=== PATIENT | male | born 1960 | race Hispanic/Latino ===

== ENCOUNTER 2021-07-25 11:09 | Outpatient (CLI) | payer MEDICARE ==
[2021-07-25 13:07] LABS: Hemoglobin 12.4 g/dL (13.5-17.5); Mean Corpuscular HGB CONC 31.2 g/dL (32.0-36.0); Mean Corpuscular Hemoglobin 26.2 pg (27.0-33.0); Mean Platelet Volume 11.2 fl (7.4-10.4); Platelet Count 347 10x3/uL (150-450); RBC Distribution Width 13.6 % (11.5-14.5); Red Blood Cell (RBC) Count 4.74 10x6/uL (4.32-5.72); White Blood Cell (WBC) Count 10.9 10x3/uL (3.5-10.5)
[2021-07-25 13:15] LABS: Anion Gap 17 mmol/L (10-20); BUN (Urea Nitrogen) 14 mg/dL (8.4-25.7); Calc. Creatinine Clearance 0 mL/min (70-130); Calcium 9.4 mg/dL (7.8-10.44); Carbon Dioxide 23 mmol/L (23-31); Chloride 99 mmol/L (98-107); Glucose 304 mg/dL (80-115); Potassium 4.8 mmol/L (3.5-5.1); Sodium 134 mmol/L (136-145)
[2021-07-26 12:54] LABS: SARS-CoV-2 PCR by NAA Not Detected (NotDetected)
== END 2021-07-25 11:10 | disposition home or self-care (01) ==
LOC: LABBT 11:09
PROVIDERS: ATTEND Neurological Surgery
DX: Z01.818 Encounter for other preprocedural examination (principal); K42.9 Umbilical hernia without obstruction or gangrene; Z20.822 Contact with and (suspected) exposure to COVID-19
CPT/HCPCS: 80048; 85027; 93005; U0003; U0005; 93010

== ENCOUNTER 2021-07-28 06:53 | Inpatient (IN) | payer MEDICARE ==
[2021-07-28] MEDS ORDERED: ceFAZolin 2 GM/DEX 5% 100 ML BAG ONE ×2 (09:33→16:54)
[2021-07-28] MEDS ORDERED: Fentanyl 100 MCG/2 ML VIAL ONE ×4 (09:44→15:27)
[2021-07-28] MEDS ORDERED: HYDROmorphone 0.5 MG/0.5 ML SYRINGE ONE (09:44)
[2021-07-28] MEDS ORDERED: PROPOFOL 200 MG/20 ML VIAL ONE (09:51)
[2021-07-28] MEDS ORDERED: Ketorolac Tromethamine 30 MG/ML VIAL ONE (09:51)
[2021-07-28] MEDS ORDERED: Rocuronium Bromide 10 MG/ML (10ML VIAL) ONE (09:51)
[2021-07-28] MEDS ORDERED: Dexamethasone 20 MG/5 ML VIAL ONE (09:51)
[2021-07-28] MEDS ORDERED: Glycopyrrolate 0.2 MG/ML 5 ML SYRINGE ONE ×2 (09:51)
[2021-07-28] MEDS ORDERED: Ondansetron PF 4 MG/2 ML Vial ONE (09:51)
[2021-07-28] MEDS ORDERED: Lidocaine 1% PF 5 ML VIAL ONE (09:51)
[2021-07-28] MEDS ORDERED: PHENYLEPHRINE-NS 100 MCG/ML 10 ML SYRINGE ONE (09:51)
[2021-07-28] MEDS ORDERED: SUGAMMADEX SODIUM 200 MG/2 ML VIAL ONE (10:37)
[2021-07-28] MEDS: Gabapentin 300 MG CAP PO SCH ×2 (16:45→22:15)
[2021-07-28] MEDS ORDERED: cefOXitin Sodium/Dextrose 2 GM/50 ML BAG ONE (16:50)
[2021-07-28] MEDS ORDERED: Gabapentin 300 MG CAP ONE (16:51)
[2021-07-28] MEDS: ceFAZolin 2 GM/Dextrose 50 ML 2 GM in Premix Bag 1 BAG IVPB SCH (17:13)
[2021-07-28] MEDS ORDERED: traMADol HCl 50 MG TAB PO PRN ×2 (17:15)
[2021-07-28] MEDS ORDERED: Morphine 4 MG/ML VIAL SLOW IVP PRN (17:15)
[2021-07-28] MEDS ORDERED: Acetaminophen/Codeine 30-300mg Tablet PO PRN (17:15)
[2021-07-28] MEDS ORDERED: diphenhydrAMINE 50 MG/ML VIAL IVP PRN (17:15)
[2021-07-28] MEDS ORDERED: diphenhydrAMINE 25 MG CAP PO PRN (17:15)
[2021-07-28] MEDS ORDERED: Mag-Al 1200 mg/1200 mg/30 ML UDCUP PO PRN (17:15)
[2021-07-28] MEDS ORDERED: Milk Of Magnesia 30 ML UDCUP PO PRN (17:15)
[2021-07-28] MEDS ORDERED: Bisacodyl 10 MG SUPP PR PRN (17:15)
[2021-07-28] MEDS ORDERED: Morphine 2 MG/ML VIAL SLOW IVP PRN (17:15)
[2021-07-28] MEDS ORDERED: Ondansetron PF 4 MG/2 ML Vial IM PRN (17:18)
[2021-07-28] MEDS ORDERED: ceFAZolin 2 GM/Dextrose 50 ML 2 GM in Premix Bag 1 BAG IVPB SCH (18:00)
[2021-07-28] MEDS: Sodium Chloride 0.9% 1,000 ML IV SCH ×2 (18:32→22:03)
[2021-07-28] MEDS: metFORMIN 500 MG TAB PO SCH (18:50)
[2021-07-28] MEDS ORDERED: Tamsulosin HCl 0.4 MG CAP PO SCH (20:30)
[2021-07-28] MEDS ORDERED: Tamsulosin HCl 0.4 MG CAP ONE (20:34)
[2021-07-28 21:48] VITALS: BMI 36.6
[2021-07-28] MEDS: Acetaminophen/Codeine 30-300mg Tablet PO PRN (23:57)
[2021-07-29] MEDS: Cyclobenzaprine 10 MG TAB PO PRN ×2 (00:02→09:17)
[2021-07-29] MEDS: ceFAZolin 2 GM/Dextrose 50 ML 2 GM in Premix Bag 1 BAG IVPB SCH ×3 (02:36→18:33)
[2021-07-29] MEDS: Tamsulosin HCl 0.4 MG CAP PO SCH (06:22)
[2021-07-29] MEDS ORDERED: Dextrose 50% Abboject 50 ML SYRINGE IVP PRN (06:45)
[2021-07-29] MEDS ORDERED: Dextrose 5% in Water 1,000 ML IV PRN ×2 (06:45→12:37)
[2021-07-29] MEDS: Amlodipine 10 MG TAB PO SCH (08:57)
[2021-07-29] MEDS: Gabapentin 300 MG CAP PO SCH ×3 (08:57→21:27)
[2021-07-29] MEDS: metFORMIN 500 MG TAB PO SCH ×2 (08:57→16:03)
[2021-07-29] MEDS: Lisinopril/Hydrochlorothiazide 20 mg/12.5 mg Tablet PO SCH (08:58)
[2021-07-29] MEDS: HumaLOG 300 UNITS/3 ML VIAL SC PRN ×2 (08:58→12:20)
[2021-07-29] MEDS ORDERED: FLU VACC QS2021-22(6MOS UP)/PF 60 MCG/0.5 ML SYRINGE IM ONE (09:00)
[2021-07-29] MEDS ORDERED: Dextrose 50% Abboject 50 ML SYRINGE SLOW IVP PRN (12:37)
[2021-07-29] MEDS ORDERED: HumaLOG 300 UNITS/3 ML VIAL SC PRN (12:37)
[2021-07-29] MEDS ORDERED: Bisacodyl 10 MG SUPP PR PRN (15:34)
[2021-07-29] MEDS: Simethicone Chewable 80 MG TAB PO PRN ×2 (16:03→22:39)
[2021-07-29] MEDS: Acetaminophen/Codeine 30-300mg Tablet PO PRN (18:36)
[2021-07-29] MEDS ORDERED: Lantus 1000 UNITS/10 ML VIAL SC SCH (21:00)
[2021-07-29 21:19] VITALS: BP 101/57; TEMP 98.2
[2021-07-29] MEDS: Senokot S 8.6-50 MG TAB PO SCH (21:27)
[2021-07-30] MEDS: Sodium Chloride 0.9% 1,000 ML IV SCH (00:25)
[2021-07-30] MEDS: ceFAZolin 2 GM/Dextrose 50 ML 2 GM in Premix Bag 1 BAG IVPB SCH (01:57)
[2021-07-30] MEDS: Tamsulosin HCl 0.4 MG CAP PO SCH (05:55)
[2021-07-30 08:24] LABS: #Eosinphils 0.1 thou/uL (0.0-0.7); #Lymphocytes 2.4 thou/uL (1.20-3.40); #Monocytes 0.8 thou/uL (0.11-0.59); #Neutrophils 7.1 thou/uL (1.40-6.50); %Basophils 0.3 % (0.0-1.0); %Eosinophils 1.2 % (0.0-10.0); %Lymphocytes 22.9 % (21.0-51.0); %Monocytes 7.6 % (0.0-10.0); %Neutrophils 68.1 % (42.0-75.0); Hemoglobin 11.2 g/dL (14.0-18.0); Mean Corpuscular HGB CONC 31.9 g/dL (32.0-36.0); Mean Corpuscular Hemoglobin 26.9 pg (27.0-31.0); Mean Corpuscular Volume 84.3 fL (78.0-98.0); Mean Platelet Volume 8.1 fL (7.4-10.4); Platelet Count 233 thou/uL (130-400); RBC Distribution Width 13.5 % (11.5-14.5); Red Blood Cell (RBC) Count 4.15 mill/uL (4.70-6.10); White Blood Cell (WBC) Count 10.4 thou/uL (4.8-10.8)
[2021-07-30 08:40] LABS: Anion Gap 13 mmol/L (10-20); BUN (Urea Nitrogen) 19 mg/dL (8.4-25.7); Calc. Creatinine Clearance 154 mL/min (70-130); Calcium 9.3 mg/dL (7.8-10.44); Carbon Dioxide 28 mmol/L (23-31); Chloride 99 mmol/L (98-107); Glucose 169 mg/dL (80-115); Potassium 4.2 mmol/L (3.5-5.1); Sodium 136 mmol/L (136-145)
[2021-07-30] MEDS: metFORMIN 500 MG TAB PO SCH (09:16)
[2021-07-30] MEDS: Lisinopril/Hydrochlorothiazide 20 mg/12.5 mg Tablet PO SCH (09:16)
[2021-07-30] MEDS: Senokot S 8.6-50 MG TAB PO SCH (09:16)
[2021-07-30] MEDS: Gabapentin 300 MG CAP PO SCH (09:17)
[2021-07-30] MEDS: Amlodipine 10 MG TAB PO SCH (09:17)
== END 2021-07-30 11:32 | disposition home or self-care (01) | DRG 460 ==
LOC: SDC 06:53 → PACU-TCU 12:07 → MSONC 21:39 → OBSVTOIN 07-29 16:29
PROVIDERS: ADMIT Neurological Surgery; ATTEND Neurological Surgery
PROC: 0SG0071 Fusion of Lumbar Vertebral Joint with Autologous Tissue Substitute, Posterior Approach, Posterior Column, Open Approach (ICD-10-PCS; principal; 2021-07-28)
PROC: 00NY0ZZ Release Lumbar Spinal Cord, Open Approach (ICD-10-PCS; 2021-07-28)
DX: M48.062 Spinal stenosis, lumbar region with neurogenic claudication (principal); M43.16 Spondylolisthesis, lumbar region; E66.01 Morbid (severe) obesity due to excess calories; I10 Essential (primary) hypertension; E78.5 Hyperlipidemia, unspecified; N40.0 Benign prostatic hyperplasia without lower urinary tract symptoms; Z86.73 Personal history of transient ischemic attack (TIA), and cerebral infarction without residual deficits; E11.65 Type 2 diabetes mellitus with hyperglycemia; M54.16 Radiculopathy, lumbar region; Z79.84 Long term (current) use of oral hypoglycemic drugs; Z68.36 Body mass index [BMI] 36.0-36.9, adult; Z79.891 Long term (current) use of opiate analgesic; Z79.899 Other long term (current) drug therapy; Z90.49 Acquired absence of other specified parts of digestive tract
CPT/HCPCS: 36415; 36416; 76000; 80048; 85025; 96365; 96375; 96376; C1713; C1768; G0378; J0690; J0694; J1100; J1170; J1815; J1885; J2270; J2405; J2704; J3010; J3370; J7050

== ENCOUNTER 2021-08-12 08:59 | Outpatient (CLI) | payer MEDICARE | END 2021-08-12 09:00 | disposition home or self-care (01) | LOC: TBSIIMAG 08:59 | PROVIDERS: ATTEND Neurological Surgery | DX: M48.062 Spinal stenosis, lumbar region with neurogenic claudication (principal); M47.816 Spondylosis without myelopathy or radiculopathy, lumbar region | CPT/HCPCS: 72100 ==